=== PATIENT | male | born 1955 | race Caucasian/White ===

== ENCOUNTER 2018-04-12 19:51 | Observation (INO) | payer OTHER ==
--- NOTE | 2018-04-12 19:56 | PDOC ---
History of Present Illness - General History Source: Patient Exam Limitations: No Limitations - History of Present Illness Initial Comments: 04/12/18 20:16 The patient is a 62 year old male with a significant PMH of HLD who presents to the emergency department with pain and redness to an abdominal hernia since yesterday. The patient states he has had the hernia for at least 30 years with no complications. The patient states the hernia pain is exacerbated when lying on his abdomen, and alleviated when lying on his back. The patient reports that he can tolerate PO intake and is having normal bowel movements. The patient states he was used pepto-bismol and was drinking tea yesterday with no relief. The patient denies chest pain, shortness of breath, headache and dizziness. Denies fever, chills, nausea, vomit, diarrhea and constipation. Denies dysuria, frequency, urgency and hematuria. Allergies: NKA Past surgical history: None reported. Social history: Occasionally drinks wine. No reported drug or cigarette use. PCP: Dr. Garduno <Cassie Euceda - Last Filed: 04/12/18 20:16> <Alexa Rose - Last Filed: 04/13/18 03:33> - General Chief Complaint: Pain, Acute Stated Complaint: HERNIA, PAIN AND REDNESS Time Seen by Provider: 04/12/18 19:53 Past History <Cassie Euceda - Last Filed: 04/12/18 20:16> <Alexa Rose - Last Filed: 04/13/18 03:33> - Past Medical History Allergies/Adverse Reactions: Allergies Allergy/AdvReac Type Severity Reaction Status Date / Time No Known Allergies Allergy Verified 04/12/18 19:53 Home Medications: Ambulatory Orders Rosuvastatin Calcium [Crestor] 10 mg PO DAILY 04/12/18 Review of Systems - Review of Systems Able to Perform ROS?: Yes Comments:: 04/12/18 20:19 All systems are reviewed and negative except as noted in the HPI. <Cassie Euceda - Last Filed: 04/12/18 20:16> *Physical Exam - Vital Signs Last Vital Signs Temp Pulse Resp BP Pulse Ox 98.3 F 87 18 148/97 100 04/12/18 19:55 04/12/18 19:55 04/12/18 19:55 04/12/18 19:55 04/12/18 19:55 - Physical Exam Comments: 04/12/18 20:18 GENERAL: Awake, alert, and fully oriented, in no acute distress LUNGS: Breath sounds equal, clear to auscultation bilaterally. No wheezes, and no crackles HEART: Regular rate and rhythm, normal S1 and S2, no murmurs, rubs or gallops ABDOMEN: (+) Distended but soft. (+) Hyperactive bowel sounds. (+) 3x2 cm erythematous, tender periumbilical hernia. No rebound. No involuntary guarding. No masses palpated. EXTREMITIES: Normal range of motion, no edema. No clubbing or cyanosis. No cords, erythema, or tenderness NEUROLOGICAL: Cranial nerves II through XII grossly intact. Normal speech, normal gait SKIN: Warm, Dry, normal turgor, no rashes or lesions noted. <Cassie Euceda - Last Filed: 04/12/18 20:16> ED Treatment Course - LABORATORY CBC & Chemistry Diagram: 04/12/18 20:23 <Alexa Rose - Last Filed: 04/13/18 03:33> Progress Note - Progress Note Progress Note: Documentation has been prepared under my direction and personally reviewed by me in its entirety. I attest that this documented accurately reflects all work, treatment, procedures and medical decision making performed by me. <Alexa Rose - Last Filed: 04/13/18 03:33> Medical Decision Making - Medical Decision Making 04/12/18 23:43 As noted above, this 62-year-old man presents with a tender periumbilical hernia that is erythematous and mildly edematous; exam is noted Laboratory evaluation is essentially normal without evidence of elevated white blood cell count. Abdominal/pelvic CT was planned but because of computer system failure and ultimate CT scanner failure at [facility], CT imaging cannot be performed tonight. Case discussed with from [facility]: He agrees that patient ultimately will likely require CT imaging but in the meantime, patient should be admitted NPO with IV fluids, antibiotics and pain meds as needed. 04/13/18 00:15 Case discussed with CINTHIA Perez of [facility] service. Patient will be admitted to their service with general surgery consult ([facility]). Patient will be NPO with IV fluids/Zosyn/pain medications as needed. <Alexa Rose - Last Filed: 04/13/18 03:33> *DC/Admit/Observation/Transfer <Cassie Euceda - Last Filed: 04/12/18 20:16> - Discharge Dispostion Decision to Admit order: Yes <Alexa Rose - Last Filed: 04/13/18 03:33> Diagnosis at time of Disposition: Incarcerated umbilical hernia - Discharge Dispostion Condition at time of disposition: Stable
[2018-04-12 22:54] LABS: ALBUMIN 4.4 g/dl (3.4-5.0); ANION GAP 9 (8-16); BILIRUBIN,TOTAL 0.5 mg/dL (0.2-1.0); BLOOD UREA NITROGEN 20 mg/dL (7-18); CHLORIDE 107 mmol/L (98-107); CO2 25 mmol/L (21-32); CREATININE 1.1 mg/dL (0.7-1.3); GLUCOSE,RANDOM 105 mg/dL (74-106); POTASSIUM 3.9 mmol/L (3.5-5.1); SGOT/AST 19 U/L (15-37); SGPT/ALT 41 U/L (12-78); SODIUM 141 mmol/L (136-145); TOT PROT 7.5 g/dl (6.4-8.2)
[2018-04-12 22:55] LABS: ALK PHOS 55 U/L (45-117)
[2018-04-12] MEDS ORDERED: SODIUM CHLORIDE 1,000 ML IV SCH (23:45)
[2018-04-12] MEDS ORDERED: PIPERACILLIN/TAZOB 3.375 GM 3.375 GM in DEXTROSE 5%-WATER - 50 ML IVPB ONE (23:47)
[2018-04-12] MEDS ORDERED: PIPERACILLIN/TAZOBACTAM 3.375 GM VIAL IVPB ONE (23:52)
[2018-04-13] MEDS ORDERED: DEXTROSE 5%-0.45% SALINE 1,000 ML IV SCH ×3 (00:15→14:40)
[2018-04-13 01:52] VITALS: BMI 28.7
--- NOTE | 2018-04-13 07:49 | CONSULT ---
Consult Consult Specialty:: general surgery Reason for Consultation:: umbiliical hernia - History of Present Illness Chief Complaint: abdominal pain History of Present Illness: 62 yo male PMMaurice HOLLIDAY presents to the emergency department with pain and redness to an abdominal hernia since yesterday. The patient states he has had the hernia for at least 30 years with no complications. The patient states the hernia pain is exacerbated when lying on his abdomen, and alleviated when lying on his back. The patient reports that he can tolerate PO intake and is having normal bowel movements. The patient states he was used pepto-bismol and was drinking tea yesterday with no relief, CT scan shows an incarcerated umbilical hernia repair. - History Source History Provided By: Patient, Medical Record Limitations to Obtaining History: No Limitations - Past Medical History Cardio/Vascular: Yes: Hyperlipdemia - Alcohol/Substance Use Hx Alcohol Use: Yes (OCCAS) - Smoking History Smoking history: Never smoked Have you smoked in the past 12 months: No - Social History Usual Living Arrangement: With Spouse Place of : [facility] History of Recent Travel: No Home Medications - Allergies Allergies/Adverse Reactions: Allergies Allergy/AdvReac Type Severity Reaction Status Date / Time No Known Allergies Allergy Verified 04/12/18 19:53 - Home Medications Home Medications: Ambulatory Orders Rosuvastatin Calcium [Crestor] 10 mg PO DAILY 04/12/18 Review of Systems - Review of Systems Constitutional: denies: Chills, Fever Eyes: denies: Blind Spots, Recent Change in Vision HENT: denies: Difficult Swallowing, Throat Pain Cardiovascular: denies: Chest Pain, Palpitations Respiratory: denies: Cough, SOB Gastrointestinal: reports: Abdominal Pain. denies: Constipation, Diarrhea, Nausea, Vomiting Genitourinary: denies: Discharge, Dysuria Breasts: reports: No Symptoms Reported. denies: Pain Musculoskeletal: denies: Extremity Pain, Muscle Pain, Muscle Weakness Integumentary: reports: Erythema. denies: Lesions, Rash Neurological: denies: Seizure, Syncope Endocrine: denies: Unexplained Weight Gain, Unexplained Weight Loss Hematology/Lymphatic: denies: Easily Bruised, Excessive Bleeding Psychiatric: denies: Anxiety, Depression Physical Exam Vital Signs: Vital Signs Temperature 98.2 F 04/13/18 06:00 Pulse Rate 61 04/13/18 06:00 Respiratory Rate 18 04/13/18 06:00 Blood Pressure 136/80 04/13/18 06:00 O2 Sat by Pulse Oximetry (%) 95 04/13/18 06:00 Vital Signs Period Temp Pulse Resp BP Sys/Dominique Pulse Ox Last 24 Hr 98.2 F-98.3 F 61-87 18-18 136-151/73-97 95-100 Constitutional: Yes: Well Nourished, No Distress, Calm Eyes: Yes: Conjunctiva Clear, EOM Intact HENT: Yes: Atraumatic, Normocephalic Neck: Yes: Supple, Trachea Midline Cardiovascular: Yes: Regular Rate and Rhythm, S1, S2 Respiratory: Yes: Regular, CTA Bilaterally Gastrointestinal: Yes: Normal Bowel Sounds, Soft, Hernia (unable to reduce), Tenderness (perimubilical erythema). No: Ascites, Distention, Hepatomegaly, Splenomegaly, Tenderness, Rebound ...Rectal Exam: Yes: Deferred Renal/: No: CVA Tenderness - Left, CVA Tenderness - Right Musculoskeletal: No: Muscle Pain, Muscle Weakness Extremities: No: Cool, Cyanosis Edema: No Peripheral Pulses WNL: Yes Integumentary: Yes: Erythema (periumbilical). No: Jaundice, Rash Neurological: Yes: Alert, Oriented Psychiatric: Yes: Alert, Oriented Labs: CBC, BMP 04/12/18 20:23 Imaging - Results Cat Scan: Report Reviewed, Image Reviewed (umbilcal hernia defect with incarcerated omentum) Problem List - Problems (1) Incarcerated umbilical hernia Assessment/Plan: 62yo male PMH HLD incarcerated umbilical hernia NPO and IVF hydration empiric IV antibiotics adequate analgesia Discussed with patient risks, benefits and alternatives of laparoscopic possible open umbilical/ ventral hernia repair with mesh, including but not limited to bleeding, infection, injury to adjacent structures, leak or injury, intraabdominal abscess, need for further procedures, ; alternatives include antibiotics, delayed or no surgery - risks of this include failure of nonoperative therapy, perforation, sepsis, recurrence, . Patient desires to proceed with operation - will take to OR for above. Informed consent signed for same. Thank you for the opportunity to participate in the care of this patient. Code(s): K42.0 - UMBILICAL HERNIA WITH OBSTRUCTION, WITHOUT GANGRENE (2) HLD (hyperlipidemia) Code(s): E78.5 - HYPERLIPIDEMIA, UNSPECIFIED Qualifiers: Hyperlipidemia type: unspecified Qualified Code(s): E78.5 - Hyperlipidemia , unspecified (3) Abdominal pain in male Code(s): R10.9 - UNSPECIFIED ABDOMINAL PAIN
[2018-04-13] MEDS ORDERED: PIPERACILLIN/TAZOB 3.375 GM 3.375 GM/50 ML BAG IVPB ONE (08:00)
--- NOTE | 2018-04-13 08:50 | HP ---
CHIEF COMPLAINT: abdominal pain PCP: Dr Garduno HISTORY OF PRESENT ILLNESS: Patient is a 8-year-old male with a past medical history of hyperlipidemia. Patient reports that he has a known history of umbilical hernia for 20 years. He reports yesterday developing sudden sharp abdominal pain to hernia denies any nausea or vomiting. Patient denies any tactile fevers. He reports point tenderness to the hernia in sought evaluation in the emergency department. ER course was notable for: (1)Chest x-ray, no infilirates no effusion noted. (2) creatine 1.1 (3)wbc 5.6 Recent Travel: none PAST MEDICAL HISTORY: see hpi PAST SURGICAL HISTORY: none Social History: restaurant biomedical engineering technologist, resides at home with Smoking:none Alcohol: 3-4 glasses of wine daily Drugs: none Family History: none as per patient Allergies No Known Allergies Allergy (Verified 04/12/18 19:53) HOME MEDICATIONS: Home Medications Medication Instructions Recorded Rosuvastatin Calcium [Crestor] 10 mg PO DAILY 04/12/18 REVIEW OF SYSTEMS CONSTITUTIONAL: Absent: fever, chills, diaphoresis, generalized weakness, malaise, loss of appetite, weight change HEENT: Absent: rhinorrhea, nasal congestion, throat pain, throat swelling, difficulty swallowing, mouth swelling, ear pain, eye pain, visual changes CARDIOVASCULAR: Absent: chest pain, syncope, palpitations, irregular heart rate, lightheadedness , peripheral edema RESPIRATORY: Absent: cough, shortness of breath, dyspnea with exertion, orthopnea, wheezing, stridor, hemoptysis GASTROINTESTINAL: Present: abdominal pain Absent:abdominal distension, nausea, vomiting, diarrhea, constipation, melena, hematochezia GENITOURINARY: Absent: dysuria, frequency, urgency, hesitancy, hematuria, flank pain, genital pain MUSCULOSKELETAL: Absent: myalgia, arthralgia, joint swelling, back pain, neck pain SKIN: Absent: rash, itching, pallor HEMATOLOGIC/IMMUNOLOGIC: Absent: easy bleeding, easy bruising, lymphadenopathy, frequent infections ENDOCRINE: Absent: unexplained weight gain, unexplained weight loss, heat intolerance, cold intolerance NEUROLOGIC: Absent: headache, focal weakness or paresthesias, dizziness, unsteady gait, seizure, mental status changes, bladder or bowel incontinence PSYCHIATRIC: present: anxious Absent: depression, suicidal or homicidal ideation, hallucinations. PHYSICAL EXAMINATION Vital Signs - 24 hr 04/12/18 04/13/18 04/13/18 19:55 01:37 06:00 Temperature 98.3 F 98.3 F 98.2 F Pulse Rate 87 70 61 Respiratory 18 18 18 Rate Blood Pressure 148/97 151/73 136/80 O2 Sat by Pulse 100 99 95 Oximetry (%) GENERAL: Awake, alert, and fully oriented, in no acute distress. HEAD: Normal with no signs of trauma. EYES: Pupils equal, round and reactive to light, extraocular movements intact, sclera anicteric, conjunctiva clear. No lid lag. EARS, NOSE, THROAT: Ears normal, nares patent, oropharynx clear without exudates. Moist mucous membranes. NECK: Normal range of motion, supple without lymphadenopathy, JVD, or masses. LUNGS: Breath sounds equal, clear to auscultation bilaterally. No wheezes, and no crackles. No accessory muscle use. HEART: Regular rate and rhythm, normal S1 and S2 without murmur, rub or gallop. ABDOMEN: non reducible erythematous (secondary to pain) umbilical hernia, Soft , nontender, not distended, normoactive bowel sounds, no guarding, no rebound, no masses. No hepatomegaly or splenomegaly. MUSCULOSKELETAL: Normal range of motion at all joints. No bony deformities or tenderness. No CVA tenderness. UPPER EXTREMITIES: 2+ pulses, warm, well-perfused. No cyanosis. No clubbing. No peripheral edema. LOWER EXTREMITIES: 2+ pulses, warm, well-perfused. No calf tenderness. No peripheral edema. NEUROLOGICAL: Cranial nerves II-XII intact. Normal speech. Normal gait. PSYCHIATRIC: Cooperative. Good eye contact. Appropriate mood and affect. SKIN: Warm, dry, normal turgor, no rashes or lesions noted, normal capillary refill. Laboratory Results - last 24 hr 04/12/18 20:23 Sodium 141 Potassium 3.9 Chloride 107 Carbon Dioxide 25 Anion Gap 9 BUN 20 H Creatinine 1.1 Creat Clearance w eGFR > 60 Random Glucose 105 Calcium 9.0 Total Bilirubin 0.5 AST 19 ALT 41 Alkaline Phosphatase 55 Total Protein 7.5 Albumin 4.4 ASSESSMENT/PLAN: 1) umbilical hernia - ct scan of abd/pelvis, pending - Patient is afebrile, wbc 5.6 - attempted to reduce hernia at bedside, patient is Resistant secondary to the pain - Appreciate input of general surgeon Dr. Knox 2) cardiovascular hyperlipidemia - Continue Crestor 3) psych alcohol abuse - reports drinking 3-4 glasses of wine daily, close monitoring for signs of alcohol withdrawal f/e/n - npo-->ivf - replete electrolytes prn ppx - hold ac Until patient is evaluated by surgeon - Mechanical AC only - Pepcid Dispo: he requires observation admission Visit type - Emergency Visit Emergency Visit: Yes ED Registration Date: 04/13/18 Care time: The patient presented to the Emergency Department on the above date and was hospitalized for further evaluation of their emergent condition. - New Patient This patient is new to me today: Yes Date on this admission: 04/13/18 - Critical Care Critical Care patient: No Hospitalist Screening - Colonoscopy Questionnaire Colonoscopy Questionnaire: Colonoscopy Questionnaire - Patient: 50 - 75 years old and never had a screening colonoscopy: No History of colon or rectal polyps, or CA: No History of IBD, Crohn's disease or UC: No History of abdominal radiation therapy as a child: No - Relative: 1 with colon or rectal CA, or polyps at age 60 or younger: No Colon or rectal CA diagnosed at age 45 or younger: No Multiple relatives with colon or rectal CA: No - Outcome: Screening Result: Negative Screen
[2018-04-13 10:18] LABS: BASO % 0.4 % (0-2.0); EOS % 1.2 % (0-4.5); HEMATOCRIT 39.7 % (35.4-49); HEMOGLOBIN 13.8 GM/dl (11.7-16.9); LYMPH % 18.8 % (8-40); MCH 30.6 pg (25.7-33.7); MCHC 34.8 g/dl (32.0-35.9); MEAN CELL VOLUME 87.8 fl (80-96); MEAN PLT VOLUME 7.9 fl (7.5-11.1); MONO % 8.7 % (3.8-10.2); NEUT % 70.9 % (42.8-82.8); PLATELET COUNT 158 K/MM3 (134-434); RBC 4.51 M/mm3 (4.00-5.60); RDW 11.7 % (11.9-15.9); WHITE BLOOD COUNT 5.5 K/mm3 (4.0-10.8)
[2018-04-13] MEDS ORDERED: BUPIVACAINE HCL/PF 0.5% (5MG/ML) 10 ML VIAL ONE ×2 (11:12→13:43)
[2018-04-13] MEDS ORDERED: fentaNYL CITRATE 250 MCG/5 ML VIAL ONE (12:03)
[2018-04-13] MEDS ORDERED: PROPOFOL 20 ML ONE ×2 (12:03→13:34)
[2018-04-13] MEDS ORDERED: ROCURONIUM BROMIDE 50 MG/5 ML VIAL ONE ×2 (12:03→13:02)
[2018-04-13] MEDS ORDERED: MIDAZOLAM HCL 2 MG/2 ML SINGLE DOSE VIAL ONE (12:03)
[2018-04-13] MEDS ORDERED: ceFAZolin SODIUM 1 GM VIAL ONE (12:40)
[2018-04-13] MEDS ORDERED: DEXAMETHASONE SOD PHOSPHATE 4 MG/1 ML VIAL ONE (12:48)
[2018-04-13] MEDS ORDERED: ONDANSETRON 4 MG/2 ML VIAL ONE ×2 (12:48→13:39)
[2018-04-13] MEDS ORDERED: GLYCOPYRROLATE 0.2 MG/1 ML VIAL ONE (13:39)
[2018-04-13] MEDS ORDERED: NEOSTIGMINE METHYLSULFATE 0.5 MG/ML - 10 ML MDV ONE (13:39)
[2018-04-13] MEDS ORDERED: ONDANSETRON 4 MG/2 ML VIAL IVPUSH PRN (14:04)
[2018-04-13] MEDS ORDERED: LACTATED RINGERS SOLUTION 1,000 ML IV SCH (14:15)
[2018-04-13] MEDS ORDERED: morphine CARPU-JECT 2 MG/1 ML DISP.SYRIN IVPUSH PRN (14:30)
--- NOTE | 2018-04-13 14:36 | OP ---
Operative Note - Note: Operative Date: 04/13/18 Pre-Operative Diagnosis: incarated ventral umbilical hernia Operation: laparoscopic ventral umbilical hernia repair with mesh Findings: incarcerated ventral umbilical hernia 1.5cm defect, hernia sac debrided and BARD 4" X6" ventralex Echo PS mesh used Implants: BARD 4" X6" ventralex Echo PS Post-Operative Diagnosis: Same as Pre-op Surgeon: Cuauhtemoc Knox Cyber Incident Analyst: Tod Howe Anesthesiologist/EMS HELICOPTER PILOT: An Colon Anesthesia: General, Local (0.5% marcaine 20ml) Specimens Removed: hernia sac Estimated Blood Loss (mls): 10 Drains, Volume Out (mls): 200 (kulkarni) Fluid Volume Replaced (mls): 800 Operative Report Dictated: Yes
[2018-04-13] MEDS ORDERED: morphine SULFATE 4 MG/ML VIAL IVPUSH PRN (14:40)
[2018-04-13] MEDS ORDERED: PIPERACILLIN/TAZOB 3.375 GM 3.375 GM/50 ML BAG IVPB SCH (18:00)
[2018-04-14 06:32] VITALS: TEMP 98.2
--- NOTE | 2018-04-14 08:04 | DS ---
Physical Exam: SUBJECTIVE: Patient seen and examined, patient's exam was very throughout nursing station, denies any nausea or vomiting tolerating regular diet OBJECTIVE:Patient is a 8-year-old male with a past medical history of hyperlipidemia. Patient reports that he has a known history of umbilical hernia for 20 years. He reports yesterday developing sudden sharp abdominal pain to hernia denies any nausea or vomiting. Patient denies any tactile fevers. He reports point tenderness to the hernia in sought evaluation in the emergency department. ER course was notable for: (1)Chest x-ray, no infilirates no effusion noted. (2) creatine 1.1 (3)wbc 5.6 Vital Signs Period Temp Pulse Resp BP Sys/Dominique Pulse Ox Last 24 Hr 97.7 F-98.6 F 61-83 10-19 107-141/61-97 91-98 PHYSICAL EXAM GENERAL: The patient is awake, alert, and fully oriented, in no acute distress. HEAD: Normal with no signs of trauma. EYES: PERRL, extraocular movements intact, sclera anicteric, conjunctiva clear. ENT: Ears normal, nares patent, oropharynx clear without exudates, moist mucous membranes. NECK: Trachea midline, full range of motion, supple. LUNGS: Breath sounds equal, clear to auscultation bilaterally, no wheezes, no crackles, no accessory muscle use. HEART: Regular rate and rhythm, S1, S2 without murmur, rub or gallop. ABDOMEN: Soft, surgical sites, cdi, well approximated, slight tenderness upon palpation, nondistended, normoactive bowel sounds, no guarding, no rebound, no hepatosplenomegaly, no masses. EXTREMITIES: 2+ pulses, warm, well-perfused, no edema. NEUROLOGICAL: Cranial nerves II through XII grossly intact. Normal speech, gait not observed. PSYCH: Normal mood, normal affect. SKIN: Warm, dry, normal turgor, no rashes or lesions noted. LABS Laboratory Results - last 24 hr 04/12/18 04/13/18 04/13/18 20:23 07:30 07:30 WBC 5.5 RBC 4.51 Hgb 13.8 Hct 39.7 MCV 87.8 MCH 30.6 MCHC 34.8 RDW 11.7 L Plt Count 158 MPV 7.9 Absolute Neuts (auto) 3.9 Neutrophils % 70.9 Lymphocytes % 18.8 Monocytes % 8.7 Eosinophils % 1.2 Basophils % 0.4 Lactic Acid 1.4 Blood Type A POSITIVE Antibody Screen Negative Microbiology 04/13/18 07:55 Blood - Peripheral Venous Blood Culture - Preliminary NO GROWTH OBTAINED AFTER 24 HOURS, INCUBATION TO CONTINUE FOR 4 DAYS. 04/13/18 07:50 Blood - Peripheral Venous Blood Culture - Preliminary NO GROWTH OBTAINED AFTER 24 HOURS, INCUBATION TO CONTINUE FOR 4 DAYS. IMAGING chest xray: no acute pathology ct scan of abd/pelvis w/o contrast: 3.7 x 3.7 cm umbilical hernia noted containing fat small amount of fluid, small amount of surrounding subcutaneous edema, small bilateral adrenal nodules seen representing adenomas versus nodular hyperplasia, biochemical evaluation suggested as well as 3 months follow -up with noncontrast CT HOSPITAL COURSE: Patient was a different emergency department to the medical surgical floor for incarcerated ventral umbilical hernia. On hospital day 1 general surgeon was consulted. Case discussed with patient and at bedside. Patient agreed to OR on hospital day 1. Patient underwent a laparoscopic ventral umbilical hernia repair with mesh. Patient was transferred back to the medical surgical floor postoperatively. Patient tolerated regular diet on post operative day 1. Patient Ambulated the hallway on postoperative day 1 without difficulty. Patient remained afebrile throughout admission no leukocytosis noted. Patient has a past medical history of hyperlipidemia crusted was continued. Patient does admit to drinking 3-4 glasses of wine daily. No signs of alcohol withdrawal was noted. Plan: - Discharge home with low sodium low-cholesterol diet - Strict follow up with Dr. Knox within 1 week - return precautions reviewed. Date of Admission:04/13/18 Date of Discharge: 04/14/18 Minutes to complete discharge: 45 Discharge Summary Reason For Visit: HERNIA, PAIN AND REDNESS Current Active Problems Abdominal pain in male (Acute) HLD (hyperlipidemia) (Acute) Incarcerated umbilical hernia (Acute) Condition: Improved - Instructions Diet, Activity, Other Instructions: Postoperative instructions: You had a laparoscopic ventral umbilical hernia repair on 04/13/[address] Cuauhtemoc Knox of [facility]. Activity: Resume your usual activities gradually, but no heavy exertion or lifting more than 10-15 pounds for 1 month. Purple tinted plastic over your wound is your dressing, it will loosen and fall off over time. You may shower daily starting then, just pat the incision areas dry. Eat lightly at first, but advance to your usual diet as tolerated. Pain: For pain, you may use and alternate Tylenol (acetaminophen) and/or ibuprofen every 6 hours each as needed; this means that you can take one OR the other at 3-hour intervals. If you are prescribed a Tylenol/narcotic combination for severe pain, use it instead of plain Tylenol as needed and switch back when your pain starts decreasing. Do not take more than 4000mg of acetaminophen in a day. Take medications as prescribed or indicated on the labeling. Follow-up: Call Dr. Knox' office at [phone] to make your postop appointment (Friday ~2 weeks after surgery). Clinic is held in the Diagnostic [facility] on the first floor of [facility]. Call the office if you have: * increasing pain not responsive to pain medication * fever of 101F or higher * vomiting * unusual or increasing bleeding or drainage from wounds * increasing redness or swelling at wound sites * inability to urinate Also, see your primary medical doctor within 1-2 weeks. Referrals: Cuauhtemoc Knox MD [Staff Physician] - Shania Garduno MD [Primary Care Provider] - Disposition: HOME - Home Medications Comprehensive Discharge Medication List: Ambulatory Orders Rosuvastatin Calcium [Crestor] 10 mg PO DAILY 04/12/18
[2018-04-14 08:13] LABS: BASO % 0.3 % (0-2.0); HEMATOCRIT 42.1 % (35.4-49); HEMOGLOBIN 14.4 GM/dl (11.7-16.9); LYMPH % 6.6 % (8-40); MCH 29.9 pg (25.7-33.7); MCHC 34.2 g/dl (32.0-35.9); MEAN CELL VOLUME 87.5 fl (80-96); MEAN PLT VOLUME 7.5 fl (7.5-11.1); MONO % 6.6 % (3.8-10.2); NEUT % 86.5 % (42.8-82.8); PLATELET COUNT 207 K/MM3 (134-434); RBC 4.82 M/mm3 (4.00-5.60); RDW 12.1 % (11.9-15.9); WHITE BLOOD COUNT 9.8 K/mm3 (4.0-10.8)
[2018-04-14] MEDS ORDERED: ACETAMINOPHEN 325 MG TABLET (FP) PO PRN (09:30)
[2018-04-14 09:31] LABS: ANION GAP 10 (8-16); BLOOD UREA NITROGEN 14 mg/dl (7-18); CALCIUM 9.3 mg/dl (8.4-10.2); CHLORIDE 105 mmol/L (98-107); CO2 25 mmol/L (22-28); GLUCOSE,RANDOM 135 mg/dl (74-106); SODIUM 140 mmol/L (136-145)
--- NOTE | 2018-04-14 09:52 | PN ---
Progress Note, Physician Chief Complaint: abdominal pain History of Present Illness: 62 yo male PMH HLD presents to the emergency department with pain and redness to an abdominal hernia since yesterday. stable overnight no complaints - Current Medication List Current Medications: Active Medications Acetaminophen (Tylenol -) 650 mg PO Q4H PRN PRN Reason: PAIN LEVEL 1-5 Last Admin: 04/14/18 09:37 Dose: 650 mg Dextrose/Sodium Chloride (D5-1/2ns -) 1,000 mls @ 125 mls/hr IV ASDIR [facility] Last Admin: 04/13/18 20:04 Dose: 125 mls/hr Morphine Sulfate (Morphine Sulfate) 4 mg IVPUSH Q4H PRN PRN Reason: PAIN LEVEL 7 - 10 Last Admin: 04/13/18 19:58 Dose: 4 mg Rosuvastatin Calcium (Crestor -) 10 mg PO DAILY [facility] Last Admin: 04/14/18 09:37 Dose: 10 mg - Objective Vital Signs: Vital Signs Temperature 98.2 F 04/14/18 06:00 Pulse Rate 67 04/14/18 06:00 Respiratory Rate 19 04/14/18 06:00 Blood Pressure 123/71 04/14/18 06:00 O2 Sat by Pulse Oximetry (%) 93 L 04/14/18 06:31 Constitutional: Yes: Well Nourished, No Distress, Calm Eyes: Yes: Conjunctiva Clear, EOM Intact HENT: Yes: Atraumatic, Normocephalic Neck: Yes: Supple, Trachea Midline Cardiovascular: Yes: Regular Rate and Rhythm, S1, S2 Respiratory: Yes: Regular, CTA Bilaterally Gastrointestinal: Yes: Normal Bowel Sounds, Soft ...Rectal Exam: Yes: Deferred Genitourinary: No: CVA Tenderness - Left, CVA Tenderness - Right Extremities: No: Cool, Cyanosis Wound/Incision: Yes: Clean/Dry, Well Approximated, Open to air, Other (dermabond ) Neurological: Yes: Alert, Oriented Psychiatric: Yes: Alert, Oriented Labs: CBC, BMP 04/14/18 07:35 04/14/18 07:35 Problem List - Problems (1) Incarcerated umbilical hernia Assessment/Plan: 62yo male PMH HLD incarcerated umbilical hernia POD#1 s/p Lap ventral hernia repair Diet as tolerated adequate analgesia f/u when back from vacation Discharge home Code(s): K42.0 - UMBILICAL HERNIA WITH OBSTRUCTION, WITHOUT GANGRENE (2) HLD (hyperlipidemia) Code(s): E78.5 - HYPERLIPIDEMIA, UNSPECIFIED Qualifiers: Hyperlipidemia type: unspecified Qualified Code(s): E78.5 - Hyperlipidemia , unspecified (3) Abdominal pain in male Code(s): R10.9 - UNSPECIFIED ABDOMINAL PAIN
[2018-04-14] MEDS ORDERED: ROSUVASTATIN CA 10 MG TABLET (FP) PO SCH (10:00)
[2018-04-14 12:23] VITALS: BP 118/74; PULSE 72
--- NOTE | 2018-04-14 15:36 | OP ---
DATE OF OPERATION: 04/13/2018 PREOPERATIVE DIAGNOSIS: Incarcerated ventral/umbilical hernia. POSTOPERATIVE DIAGNOSIS: Incarcerated ventral/umbilical hernia. PROCEDURE: Laparoscopic repair of ventral/umbilical hernia with mesh. ATTENDING SURGEON: Cuauhtemoc Knox MD SLURRY WORKER: Tod Howe MD ANESTHESIOLOGIST: An Colon MD ANESTHESIA TYPE: General with local. Local consisted of 0.5% Marcaine. A total of 20 mL was given in an area block fashion at the port sites. IMPLANT: A Bard 4 x 6 Ventralex Echo mesh PS. SPECIMEN SENT: Hernia sac. ESTIMATED BLOOD LOSS: 10 mL INTRAVENOUS FLUID ADMINISTERED DURING THE CASE: Crystalloid 800 mL. DRAINS: Urine 200 mL output. Mackenzie removed at the termination of the case. BRIEF FINDINGS: Incarcerated ventral/umbilical hernia, 1.5-cm defect which was circular at the umbilicus. Some diastasis noted. Hernia sac was debrided. Bard 4 x 6 Ventralex mesh was interposed after primary closure of the defect. INDICATIONS: Patient is a 62-year-old male with past medical history of hyperlipidemia, presented with 3 days of worsening periumbilical pain with some changes in the color of his skin. A CT revealed an incarcerated bit of omental fat in a hernia defect. He was not showing obstructive symptoms. He was counseled regarding risks, benefits, and alternatives to surgical repair; signed informed consent. At which point, he was taken for the procedure. DESCRIPTION OF PROCEDURE: Patient was brought to the operating room, placed in supine position on the operating table with the left arm tucked and the right arm extended at 90 degrees perpendicular to the body's axis. Lower extremities had SCDs placed to compression. Patient was induced with general anesthesia, endotracheally intubated. The anterior abdominal wall was clipped, prepped and draped in standard surgical fashion. We proceeded first with left upper quadrant Shellie approach which was scribed 2 fingerbreadths below the costal margin in the midclavicular line. This was marked preoperatively after a formal timeout identified the operative site and procedure with the in the room, and all parties in agreement, we began with first a 15-blade scalpel. The incision was made, and it was deepened and widened through subcutaneous tissue with Bovie cautery to the anterior fascia of the rectus interface which was then identified, clamped, and entered with the cautery as well. The muscle splitting was done towards the posterior sheath which was also grasped and elevated into the wound and then opened with scissors. Finger exploration of the area appeared to have clear with no adhesion of intraabdominal viscera. The posterior and anterior sheaths were combined in figure-of-8 with 0 Vicryl was laid in for ablation of the Shellie entry site. A Shellie 12 mm was installed and a pneumoperitoneum established to 15 mmHg. We proceeded then with inspection of the abdomen. Immediately noted was a knuckle of omental fat which appeared to be bulbous and somewhat infarcted and injected which was just above the small intestines. It was photographed but did appear viable, although a small hematoma was at its tip. We proceeded then with inspection of the umbilical site. With external pressure, the hernia sac was reduced into the abdomen. It appeared somewhat injected and inflamed. It was grasped after establishing 2 additional port sites 5 mm under direct visualization, one in the left lower quadrant and one in the lateral axis at the level of the umbilicus on the right. The hernia sac was then grasped and divided, cut away from the anterior abdominal wall using a hot EndoShear. After its debridement, there was a hernia defect that was apparent, approximately 1.5 cm estimated diameter, and it appeared circular at the umbilicus. We proceeded then with a primary closure through a small cinthia in the umbilicus itself. A retrieval suture passing needle was installed, and a simple interrupted closure of the umbilical defect was carried through with a number 1 Vicryl. This was laid in and retrieved from the small cinthia in the umbilicus and tied down after relieving the pneumoperitoneum to relieve tension. With re-establishment of the pneumoperitoneum, it was clear that the hernia defect itself was somewhat ablated and would provide an adequate scar. We did proceed then with installation of the mesh. A Bard size 4 x 6 Ventralex Echo PS was selected and installed into the Shellie port after being rolled. The inflation device was retrieved similarly through the cinthia in the umbilicus, and then, the Echo mesh was inflated and positioned in caudocranial axis along with the body's midline for the oval mesh. Once in adequate position, we then used a 5-mm tacker with absorbable tacks to circumferentially secure the mesh to the anterior abdominal wall from the inside. This was done circumferentially from both sides and superior and inferior poles. When they appeared adequately adhered and secured, we proceeded then with retrieval of the inflation device and additional tack placement after the inflation device was removed from the abdomen at the Shellie port as well. It was checked for integrity and completeness. It was passed off of the field. The hernia sac was also passed off the field for final pathologic diagnosis. Additional tacks were placed throughout the mid portion of the mesh repair with care taken not to place any through the defect directly. With this complete, additional photographs were taken, and the ports were removed under direct visualization. The pneumoperitoneum relieved. The Shellie port site was then ablated by tying the number 1 Vicryl which was laid in preoperatively. The patient then had the port sites irrigated and closed after local anesthetic was placed in an area block around each port site. Skin was cleaned. Sterile dressings were placed which involved Dermabond at the port sites. He was awoken from general anesthesia, having tolerated the procedure well. Patient was stable throughout the procedure, and counts were correct at the termination of the procedure. MD SHRUTHI Medina/[id number]
--- NOTE | 2018-04-15 13:08 | EKG ---
Test Reason : Blood Pressure : / mmHG Vent. Rate : 058 BPM Atrial Rate : 058 BPM P-R Int : 170 ms QRS Dur : 088 ms QT Int : 420 ms P-R-T Axes : 045 000 013 degrees QTc Int : 412 ms POOR DATA QUALITY, INTERPRETATION MAY BE ADVERSELY AFFECTED SINUS BRADYCARDIA INCREASED R/S RATIO IN V1, CONSIDER EARLY TRANSITION OR POSTERIOR INFARCT ABNORMAL ECG NO PREVIOUS ECGS AVAILABLE Confirmed by LYDIA DORANTES, JAKE ([id number]) on 04/15/2018 1:08:02 PM Referred By: MD MIRANDA Confirmed By:JAKE FREEMAN MD
--- NOTE | 2018-04-15 14:58 | PATH ---
Surgical Pathology Report Patient Name: BROOK PAEZ Med. Rec. #: [id number] /Age/Gender: 1955 (Age: 62) / M Account: [id number] Location: [facility] Taken: 04/13/2018 Received: 04/13/2018 Reported: 04/15/2018 Physicians: Roberto Medina MD Specimen(s) Received HERNIA SAC Clinical History Hernia, pain and redness Final Diagnosis HERNIA SAC, REPAIR: HERNIA SAC. Electronically Signed Pauline Dean M.D. Gross Description Received in formalin labeled "hernia sac," is a 3.5 x 3.0 x 1.0 cm aggregate of rivero-bailey fibromembranous tissue with attached fat, consistent with a hernia sac. Hat Blocking Machine Operator sections are submitted in one cassette. /04/14/2018/04/14/2018
== END 2018-04-14 11:05 | disposition home or self-care (01) ==
LOC: FER 19:51 → FM/S 04-13 00:18 → UNDOADMOB 04-13 00:39
PROVIDERS: ADMIT Internal Medicine; ATTEND Nurse Practitioner Family
PROC: 0WUF4JZ Supplement Abdominal Wall with Synthetic Substitute, Percutaneous Endoscopic Approach (ICD-10-PCS; principal; 2018-04-13 12:41)
DX: K42.0 Umbilical hernia with obstruction, without gangrene (principal); E78.5 Hyperlipidemia, unspecified
CPT/HCPCS: 36415; 71046-TC-FY; 74176-TC; 80048; 80053; 83605; 85025; 86850; 86900; 86901; 87040; 88302-TC; 93005; 94760; 99285-25; G0378; J7030